=== PATIENT | female | born 1990 | race Caucasian/White ===

== ENCOUNTER 2022-05-11 10:15 | Day surgery (SDC) | payer MEDICAID ==
[2022-05-11] VITALS (8 sets, daily range): BP systolic 111–124; BP diastolic 73–82
[~2022-05-11] VITALS: Ht 165.1 cm; Wt 95.3 kg
[~2022-05-11 10:15] MED LIST: ACET-1025 PO; GUAI600T45 PO; OMEP40CA21 PO; clindamycin-Cleocin 900mg/D5W 50 ML IV ONE; famotidine 20mg tablet PO ONE; ringers solution, lacted 1,000 ML IV SCH
[2022-05-11 10:55] LABS: BASOPHILS # (AUTO) 0.1 X10'3 (0-0.2); BASOPHILS % (AUTO) 0.6 % (0-1); EOSINOPHILS # (AUTO) 0.1 X10'3 (0-0.9); EOSINOPHILS % (AUTO) 0.6 % (0-6); LYMPHOCYTES # (AUTO) 3.2 X10'3 (1.1-4.8); LYMPHOCYTES % (AUTO) 30.9 % (21-51); MEAN CORPUSCULAR HEMOGLOBIN 31.2 PG (27.0-31.0); MEAN CORPUSCULAR HGB CONC 35.3 g/dL (33.0-36.5); MEAN CORPUSCULAR VOLUME 88.4 FL (78-98); MEAN PLATELET VOLUME 7.8 FL (7.4-10.4); MONOCYTES # (AUTO) 0.8 X10'3 (0-0.9); MONOCYTES % (AUTO) 7.5 % (2-12); NEUTROPHILS # (AUTO) 6.2 X10'3 (1.8-7.7); NEUTROPHILS % (AUTO) 60.4 % (42-75); PRE OP HEMATOCRIT 43.9 % (35.0-45.0); PRE OP HEMOGLOBIN 15.5 g/dL (12.0-16.0); PRE OP PLATELET COUNT 256 X10'3 (140-440); RED BLOOD COUNT 4.96 X10'6 (4.20-5.60); RED CELL DISTRIBUTION WIDTH 13.1 % (11.5-14.5)
[2022-05-11 11:11] LABS: ALBUMIN/GLOBULIN RATIO 1.2 (1.1-1.5); ALKALINE PHOSPHATASE 71 IU/L (46-116); BLOOD UREA NITROGEN 8 MG/DL (7-18); BUN/CREATININE RATIO 10.3 (6.6-38.0); CALCIUM 8.7 MG/DL (8.5-10.1); CHLORIDE 105 MMOL/L (99-107); CREATININE 0.78 MG/DL (0.40-0.90); PRE OP ALT 46 U/L (30-65); PRE OP ANION GAP 8 (8-16); PRE OP AST 24 U/L (10-37); PRE OP BILIRUB, TOTAL 1.5 MG/DL (0.0-1.0); PRE OP GLUCOSE 96 MG/DL (70-104); PRE OP POTASSIUM 3.6 MMOL/L (3.4-5.1); PRE OP SODIUM 137 MMOL/L (135-145); TOTAL CARBON DIOXIDE 23.8 MMOL/L (24-32); TOTAL PROTEIN 7.3 G/DL (6.4-8.2); eGFR 85 ML/MIN
[2022-05-11 11:13] LABS: HCG SERUM QL NEGATIVE
[2022-05-11] MEDS ORDERED: morphine 4 MG/ML inj SYRINge IV PRN (12:15)
[2022-05-11] MEDS ORDERED: meperidine/PF 25mg/ml syringe IV PRN ×3 (12:15)
[2022-05-11] MEDS ORDERED: ondansetron/PF 4mg/2ml inj IV PRN (12:15)
[2022-05-11] MEDS ORDERED: ringers solution, lacted 1,000 ML IV SCH (12:15)
[2022-05-11] MEDS ORDERED: proCHLORperazine 10 MG/2 ml inj IV PRN (12:15)
[2022-05-11] MEDS ORDERED: morphine 2 MG/ML inj. syringe IV PRN (12:15)
[2022-05-11] MEDS ORDERED: BUPIVACAINE liposomal/PF 13.3 MG/ML vial IM ONE (13:15)
[2022-05-11] MEDS ORDERED: BUPIVAcaine 0.5% inj/PF 30 ML ONE (13:15)
[2022-05-11] MEDS ORDERED: LIDOcaine 1% 30ml preserv. free vial ONE (13:16)
[2022-05-11] MEDS ORDERED: sevoflurane 250ml liquid IH ONE (13:26)
[2022-05-11] MEDS ORDERED: rocuronium 10mg/ml inj IV ONE (13:30)
[2022-05-11] MEDS ORDERED: midazolam 1 mg/ML 2ml injection ONE (13:30)
[2022-05-11] MEDS ORDERED: fentaNYL/PF 50MCG/1 ML 2ML syringe ONE (13:30)
[2022-05-11] MEDS ORDERED: propofol inj 20 ML IV ONE (13:30)
[2022-05-11] MEDS ORDERED: dexamethasone sod phosphate 4mg/ml inj. ONE (14:26)
[2022-05-11] MEDS ORDERED: ondansetron/PF 4mg/2ml inj ONE (14:26)
[2022-05-11] MEDS ORDERED: BUPIVAcaine 0.5% inj/PF 30 ml vial IJ ONE (14:30)
[2022-05-11] MEDS ORDERED: glycopyrrolate 0.2mg/ml inj ONE (14:48)
[2022-05-11] MEDS ORDERED: neostigmine methylsulfate 1 MG/ML 10ml vial ONE (14:48)
--- NOTE | 2022-05-11 15:05 | NUR ---
Received from OR via BED, accompanied by Anesthesiologist and report given by Anesthesiologist. PATIENT WAKING UP, NO S/S OF PAIN, V/S WNL, SCD ON, 20G TO LUE, ABDOMEN LAP SITE CLEAN W/ NO S/S OF COMPLICATIONS Addendum: 05/11/22 at 1519 by Parth Davis RN VOID WRONG TIME
[2022-05-11] MEDS ORDERED: oxyCODONE/APAP 5-325mg tablet PO PRN (15:10)
--- NOTE | 2022-05-11 15:10 | NUR ---
Received from OR via BED, accompanied by Anesthesiologist and report given by Anesthesiologist. PATIENT WAKING UP, NO S/S OF PAIN, V/S WNL, SCD ON, 20G TO LUE, ABDOMEN LAP SITE CLEAN W/ NO S/S OF COMPLICATIONS
--- NOTE | 2022-05-11 16:00 | NUR ---
PATIENT A&OX4, C/O INTERMITTENT PAIN SEE EMAR, V/S WNL, SCD OFF, 20G TO LUE D/C, ABDOMEN LAP SITE CLEAN W/ NO S/S OF COMPLICATIONS.I HAVE REVIEWED D/C INSTRUCTIONS WITH PATIENT and they have verbalized understanding patient d/c home with all belongings and family gave transport home.
== END 2022-05-11 16:00 | disposition home or self-care (01) ==
LOC: PAS 10:15
PROVIDERS: ATTEND Surgery
DX: K80.10 Calculus of gallbladder with chronic cholecystitis without obstruction (principal); K29.60 Other gastritis without bleeding; K44.9 Diaphragmatic hernia without obstruction or gangrene; K21.9 Gastro-esophageal reflux disease without esophagitis; F84.0 Autistic disorder; F41.9 Anxiety disorder, unspecified; E66.9 Obesity, unspecified; Z68.34 Body mass index [BMI] 34.0-34.9, adult; G62.9 Polyneuropathy, unspecified; Z98.890 Other specified postprocedural states; Z88.1 Allergy status to other antibiotic agents; Z88.2 Allergy status to sulfonamides; Z88.8 Allergy status to other drugs, medicaments and biological substances; Z79.899 Other long term (current) drug therapy
CPT/HCPCS: 36415; 43239; 47562; 80053; 82948; 84703; 85025; 93005; J1100; J2175; J2250; J2270; J2405; J2704; J2710; J3010; J3490; J7030; J7120; S0020; S2900; Z7506; Z7508; Z7512; A4215; A4618; A7000; C9290